=== PATIENT | female | born 1960 | race Caucasian/White ===

== ENCOUNTER → 2022-10-27 18:16 | Outpatient (BNVA) | payer SELFPAY | PROVIDERS: Visit Provider Emergency Medicine | DX: M25.522 Pain in left elbow (principal); M25.532 Pain in left wrist; S52.502A Unspecified fracture of the lower end of left radius, initial encounter for closed fracture; S52.602A Unspecified fracture of lower end of left ulna, initial encounter for closed fracture; W18.30XA Fall on same level, unspecified, initial encounter; S52.532A Colles' fracture of left radius, initial encounter for closed fracture | CPT/HCPCS: 73080; 73110 ==